=== PATIENT | male | born 1990 | race Caucasian/White ===

== ENCOUNTER 2017-11-27 15:51 | Emergency (ER) | payer OTHER ==
[~2017-11-27] VITALS: Ht 195.6 cm; Wt 192.3 kg
[2017-11-27 15:57] VITALS: Ht 195.6 cm; Wt 192.3 kg
[2017-11-27 19:09] VITALS: BP 231/93
== END 2017-11-27 19:09 | disposition home or self-care (01) ==
LOC: ED 15:51
DX: G89.29 Other chronic pain (principal); M54.5 Low back pain; I10 Essential (primary) hypertension; J45.909 Unspecified asthma, uncomplicated
CPT/HCPCS: J1885

== ENCOUNTER 2018-08-28 20:40 | Emergency (ER) | payer OTHER ==
[~2018-08-28] VITALS: Ht 195.6 cm; Wt 196.4 kg
[2018-08-28 21:02] VITALS: Ht 195.6 cm; Wt 196.4 kg
[2018-08-29 00:14] VITALS: BP 131/95
== END 2018-08-29 00:14 | disposition home or self-care (01) ==
LOC: ED 20:40
DX: L03.011 Cellulitis of right finger (principal); J45.909 Unspecified asthma, uncomplicated; I49.9 Cardiac arrhythmia, unspecified; Z86.73 Personal history of transient ischemic attack (TIA), and cerebral infarction without residual deficits

== ENCOUNTER 2018-09-01 16:10 | Emergency (ER) | payer OTHER ==
[~2018-09-01] VITALS: Ht 195.6 cm; Wt 196.4 kg
[2018-09-01 16:12] VITALS: BP 157/99; Ht 195.6 cm; Wt 196.4 kg
== END 2018-09-01 17:22 | disposition home or self-care (01) ==
LOC: ED 16:10
DX: L03.011 Cellulitis of right finger (principal); J45.909 Unspecified asthma, uncomplicated

== ENCOUNTER 2019-02-03 15:23 | Emergency (ER) | payer OTHER ==
[~2019-02-03] VITALS: Ht 195.6 cm; Wt 197.8 kg
[2019-02-03 15:37] VITALS: Ht 195.6 cm; Wt 197.8 kg
[2019-02-03 17:48] VITALS: BP 154/102
== END 2019-02-03 17:48 | disposition home or self-care (01) ==
LOC: ED 15:23
DX: M54.5 Low back pain (principal); I10 Essential (primary) hypertension; E66.9 Obesity, unspecified
CPT/HCPCS: J1885